=== PATIENT | female | born 1975 | race Caucasian/White ===

== ENCOUNTER 2019-06-26 13:58 | Emergency (ER) | payer OTHER ==
[~2019-06-26] VITALS: Ht 165.1 cm; Wt 68.0 kg
[2019-06-26] MEDS ORDERED: ACETAMINOPHEN 325MG TABLET PO ONE (15:45)
[2019-06-26] MEDS ORDERED: IBUPROFEN 800MG TABLET PO ONE (15:45)
[2019-06-26 19:11] VITALS: BP 105/72
== END 2019-06-26 19:19 | disposition home or self-care (01) ==
LOC: ER 14:18
DX: B34.9 Viral infection, unspecified (principal)
CPT/HCPCS: 71045; 87804; 99284